=== PATIENT | male | born 1965 | race African-American/Black ===

== ENCOUNTER 2016-10-09 15:34 | Emergency (ER) | payer OTHER ==
[2016-10-09 15:46] VITALS: BP 149/82; PULSE 74; TEMP 98.2; BMI 27.1
[2016-10-09] MEDS ORDERED: IBUPROFEN 600 MG TABLET (FP) PO ONE ×2 (16:19→16:21)
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
== END 2016-10-09 16:55 | disposition home or self-care (01) ==
LOC: JERFT 15:34
DX: S13.4XXA Sprain of ligaments of cervical spine, initial encounter (principal); V43.52XA Car driver injured in collision with other type car in traffic accident, initial encounter; Y92.414 Local residential or business street as the place of occurrence of the external cause; Y99.0 Civilian activity done for income or pay; Y93.89 Activity, other specified
CPT/HCPCS: 99281-25

== ENCOUNTER 2018-03-08 18:37 | Emergency (ER) | payer BC, OTHER ==
[2018-03-08 18:48] VITALS: BMI 27.1
[2018-03-08] MEDS ORDERED: ONDANSETRON 4 MG/2 ML VIAL IVPUSH ONE (18:49)
[2018-03-08] MEDS ORDERED: SODIUM CHLORIDE 1,000 ML IV STA (18:49)
[2018-03-08] MEDS ORDERED: ACETAMINOPHEN 325 MG TABLET (FP) PO ONE (18:49)
--- NOTE | 2018-03-08 18:49 | PDOC ---
Rapid Medical Evaluation Time Seen by Provider: 03/08/18 18:44 Medical Evaluation: Allergies Allergy/AdvReac Type Severity Reaction Status Date / Time Penicillins Allergy Verified 10/09/16 15:44 I have performed a brief in-person evaluation of this patient. The patient presents with a chief complaint of: hx of HTN; c/O fever from today along with cough, rhinorrhea, nasal congestion, body aches, abd pain, NBNB emesis, diarrhea Pertinent physical exam findings: Lungs clear, abdomen soft, ND, NT I have ordered the following: Labs, CXR, flu swab, Tylenol, IVF The patient will proceed to the ED for further evaluation 03/08/18 18:45 Discharge Disposition - Referrals Referrals: Michael Xie [Primary Care Provider] - - Patient Instructions - Post Discharge Activity
[2018-03-08] MEDS ORDERED: ACETAMINOPHEN 325 MG TABLET (FP) ONE (18:59)
[2018-03-08] MEDS ORDERED: ONDANSETRON 4 MG/2 ML VIAL ONE (18:59)
[2018-03-08 19:21] LABS: EOS % 0.4 % (0-4.5); HEMATOCRIT 42.3 % (35.4-49); HEMOGLOBIN 14.5 GM/dL (11.7-16.9); LYMPH % 14.5 % (8-40); MCH 30.4 pg (25.7-33.7); MCHC 34.2 g/dl (32.0-35.9); MEAN PLT VOLUME 7.9 fl (7.5-11.1); MONO % 2.4 % (3.8-10.2); NEUT % 81.7 % (42.8-82.8); PLATELET COUNT 296 K/MM3 (134-434); RBC 4.76 M/mm3 (4.00-5.60); RDW 13.5 % (11.9-15.9); WHITE BLOOD COUNT 9.2 K/mm3 (4.0-10.0)
[2018-03-08] MEDS ORDERED: SODIUM CHLORIDE 2,722 ML IV ONE (19:32)
--- NOTE | 2018-03-08 19:58 | PDOC ---
History of Present Illness - General Chief Complaint: Pain, Acute Stated Complaint: FLU SYMPTOMS Time Seen by Provider: 03/08/18 18:44 - History of Present Illness Initial Comments: 03/08/18 19:50 53 yo M with h/o HTN, who p/w fever, and cough. Patient reports a month of non productive cough, and myalgias. Reports treatment with antitussive, azithromycin , and dayquil medication. Reports subjective fevers today. Endorses acute midabdominal pain, with no triggers or alleviators x 1 day. 2 episodes of non bilious, non bloody emesis today. 1 episode of loose, watery stool today, with absent BPR. Patient denies AG, palpitations, wheezing, vision change, CP, SOB, urinary complaints, hematuria, BPR, diarrhea, constipation, lightheadedness, weakness, sensory changes. PMHx: as noted above Surgical: Appendectomy ROS: as noted SHx: Denies tobacco use. Social Etoh. Denies IVDA. Allergies: NKDA Past History - Past Medical History Allergies/Adverse Reactions: Allergies Allergy/AdvReac Type Severity Reaction Status Date / Time Penicillins Allergy Verified 10/09/16 15:44 Home Medications: Ambulatory Orders Acetaminophen [Tylenol -] 500 mg PO Q8H #100 tablet 03/08/18 Amlodipine Besylate [Norvasc -] 5 mg PO DAILY 03/08/18 Ondansetron [Zofran Odt -] 4 mg SL BID PRN #14 od.tablet MDD 2 tab 03/08/18 COPD: No Dementia: No GI Disorders: No - Surgical History Appendectomy: Yes - Immunization History Immunization Up to Date: No - Suicide/Smoking/Psychosocial Hx Smoking History: Never smoked Have you smoked in the past 12 months: No Information on smoking cessation initiated: No Hx Alcohol Use: No Drug/Substance Use Hx: No Review of Systems - Review of Systems Comments:: 03/08/18 21:01 GENERAL/CONSTITUTIONAL: No fever or chills. No weakness. HEAD, EYES, EARS, NOSE AND THROAT: No change in vision. No ear pain or discharge. No sore throat. CARDIOVASCULAR:+ chest pain and shortness of breath. RESPIRATORY: + cough. No wheezing, or hemoptysis. GASTROINTESTINAL: +nausea, vomiting. No diarrhea or constipation. GENITOURINARY: No dysuria, frequency, or change in urination. MUSCULOSKELETAL: + Myalgias. No joint swelling or pain. No neck or back pain. SKIN: No rash NEUROLOGIC: No headache, vertigo, loss of consciousness, or change in strength/ sensation. ENDOCRINE: No increased thirst. No abnormal weight change HEMATOLOGIC/LYMPHATIC: No anemia, easy bleeding, or history of blood clots. ALLERGIC/IMMUNOLOGIC: No hives or skin allergy. *Physical Exam - Vital Signs Last Vital Signs Temp Pulse Resp BP Pulse Ox 102.5 F H 133 H 16 126/90 98 03/08/18 18:45 03/08/18 18:45 03/08/18 18:45 03/08/18 18:45 03/08/18 18:45 - Physical Exam Comments: 03/08/18 21:02 GENERAL: Awake, alert, and fully oriented, in no acute distress HEAD: No signs of trauma, normocephalic, atraumatic EYES: PERRLA, EOMI, sclera anicteric, conjunctiva clear ENT: Auricles normal inspection, hearing grossly normal, nares patent, oropharynx clear without exudates. Moist mucosa NECK: Normal ROM, supple, no lymphadenopathy, JVD, or masses LUNGS: No distress, speaks full sentences, clear to auscultation bilaterally HEART: Regular rate and rhythm, normal S1 and S2, no murmurs, rubs or gallops, peripheral pulses normal and equal bilaterally. ABDOMEN: Soft, nontender, normoactive bowel sounds. No guarding, no rebound. No masses EXTREMITIES : Normal inspection, Normal range of motion, no edema. No clubbing or cyanosis. NEUROLOGICAL: Cranial nerves II through XII grossly intact. Normal speech, normal gait, no focal sensorimotor deficits SKIN: Warm, Dry, normal turgor, no rashes or lesions noted Moderate Sedation - Procedure Monitoring Vital Signs: Procedure Monitoring Vital Signs Temperature 102.5 F H 03/08/18 18:45 Pulse Rate 133 H 03/08/18 18:45 Respiratory Rate 16 03/08/18 18:45 Blood Pressure 126/90 03/08/18 18:45 O2 Sat by Pulse Oximetry (%) 98 03/08/18 18:45 ED Treatment Course - LABORATORY CBC & Chemistry Diagram: 03/08/18 18:54 03/08/18 18:54 - ADDITIONAL ORDERS Additional order review: 03/08/18 18:54 RBC 4.76 MCV 89.0 MCHC 34.2 RDW 13.5 MPV 7.9 Neutrophils % 81.7 Lymphocytes % 14.5 Monocytes % 2.4 L Eosinophils % 0.4 Basophils % 1.0 - RADIOLOGY Radiology Studies Ordered: Category Date Time Status CHEST X-RAY PORTABLE* [RAD] Stat Radiology 03/08/18 19:33 Ordered - Medications Given in the ED: ED Medications Discontinued Medications Generic Name Dose Route Start Last Admin Trade Name Freaugusto PRN Reason Stop Dose Admin Acetaminophen 650 mg 03/08/18 18:49 03/08/18 19:14 Tylenol - PO 03/08/18 18:50 650 mg ONCE ONE Administration Sodium Chloride 1,000 mls @ 1,000 mls/hr 03/08/18 18:49 03/08/18 19:19 Normal Saline - IV 03/08/18 19:48 1,000 mls/hr ASDIR STA Administration Ondansetron HCl 4 mg 03/08/18 18:49 03/08/18 19:14 Zofran Injection IVPUSH 03/08/18 18:50 4 mg ONCE ONE Administration Medical Decision Making - Medical Decision Making 03/08/18 20:10 53 yo M with h/o HTN, who p/w cough x 1 month, fever and vomiting, 1 day. HR 133, Temp 102.5, vitals otherwise wnl. R/o PNA. will consider PNA, viral URI/ Influenza. Low suspicion pericarditis, pleural effusion. Low risk PE based on Weils criteria. Will assess for electrolyte abnml, metabolic and toxic derangements, and acid base disturbance. Sepsis Protocol initiated. Provide IVF , analgesic, anti-emetic, and reassess. ED Course: 03/08/18 20:57 CBC: Unremarkable BunCr: 12/1.5 03/08/18 23:18 03/08/18 21:02 Positive Influenza A 03/08/18 21:03 VB.62 ph, 61 02 Tylenol, Zofran sent to pharmacy 03/09/18 00:35 Repeat LA: 1.1 Pt. stable, pain, nausea improved. Stable for d/c with return precautions. Advised to f/u with PMD. *DC/Admit/Observation/Transfer Diagnosis at time of Disposition: Cough with fever - Discharge Dispostion Condition at time of disposition: Stable - Prescriptions Prescriptions: Acetaminophen [Tylenol -] 500 mg PO Q8H #100 tablet Ondansetron [Zofran Odt -] 4 mg SL BID PRN #14 od.tablet MDD 2 tab PRN Reason: Nausea - Referrals Referrals: Michael Xie [Primary Care Provider] - - Patient Instructions Printed Discharge Instructions: DI for Influenza -- Adult Additional Instructions: Please return to the emergency department with any new or worsening symptoms or concerns. Please follow up with your primary care physician within 72 hours. Please take Tylenol every 8 hours as needed and Zofran every 4 hours as needed. - Post Discharge Activity - Attestations Physician Attestion: 03/08/18 21:07 I attest to the information provided in this note.
--- NOTE | 2018-03-08 19:59 | PDOC ---
Attending Attestation - HPI HPI: 03/08/18 20:26 The patient is a 53 year old male, with a significant past medical history of HTN, who presents to the emergency department with, cough and shortness of breath. As per patient, his symptoms onset 1 month ago with associated myalgias. Patient notes today he began to have subjective fevers and 2 episodes on NBNB emesis. Patient was recently treated with a Z-pack for his symptoms, without relief. He denies any recent chest pain or shortness of breath. He denies any recent dysuria, frequency, urgency or hematuria. Allergies: Penicillins. <Bob Farias - Last Filed: 03/08/18 20:26> - Resident Resident Name: Mu Whyte - ED Attending Attestation I have performed the following: I have examined & evaluated the patient, The case was reviewed & discussed with the resident, I agree w/resident's findings & plan - Physicial Exam PE: 03/08/18 23:22 GENERAL: Awake, in no acute distress HEAD: No signs of trauma EYES: PERRLA, EOMI, sclera anicteric, conjunctiva clear, visual acuity grossly intact ENT:mucous membranes moist NECK: Normal ROM, supple, no lymphadenopathy, JVD LUNGS: Breath sounds equal, clear to auscultation bilaterally. No wheezes, and no crackles. Normal work of breathing. HEART: Regular rate and rhythm, normal S1 and S2, no murmurs, rubs or gallops ABDOMEN: Soft, nontender, normoactive bowel sounds. No guarding, Non- distended. : CHEST WALL: BACK: No midline tenderness. EXTREMITIES: Normal range of motion, no edema. No clubbing or cyanosis. No erythema, or tenderness NEUROLOGICAL: Alert, and fully oriented x4, Cranial nerves II through XII grossly intact. Normal speech, SKIN: Warm, Dry, normal turgor, no rashes or lesions noted. 03/08/18 23:30 - Medical Decision Making 03/08/18 23:23 53-year-old male with fever and bodyaches Influenza swab is positive Chest x-ray shows no acute consolidation IV fluid normal saline 30 mL/kg weight-based less given in the emergency department Initial lactic acid was elevated, plan for discharge pending repeat On reevaluation patient is feeling better Impression influenza Dehydration Plan for discharge home with supportive care 03/08/18 23:26 <Nesha Thakur - Last Filed: 03/08/18 23:30> Attestations - Attestations 03/08/18 20:26 Documentation prepared by Bob Farias, acting as chief medical officer for Nesha Thakur DO. <Bob Farias - Last Filed: 03/08/18 20:26>
[2018-03-08 20:17] LABS: VENOUS PC02 21.6 mmHg (38-52)
[2018-03-08 20:27] VITALS: BP 110/70; PULSE 106; TEMP 100.5
[2018-03-08] MEDS ORDERED: ALBUTEROL SO4 0.5 % INH SOLN 2.5 MG/0.5 ML VIAL.NEB. NEB ONE (20:30)
[2018-03-08 20:48] LABS: INR 1.1 (0.83-1.09)
[2018-03-08 20:51] LABS: ACTIVATED PTT 25.7 SECONDS (25.2-36.5)
[2018-03-08 21:01] LABS: ANION GAP 8 MMOL/L (8-16); BLOOD UREA NITROGEN 12 mg/dL (7-18); CALCIUM 8.5 mg/dL (8.5-10.1); CHLORIDE 105 mmol/L (98-107); CO2 25 mmol/L (21-32); CREATININE 1.5 mg/dL (0.55-1.3); GLUCOSE,RANDOM 108 mg/dL (74-106); POTASSIUM 4.4 mmol/L (3.5-5.1); SODIUM 138 mmol/L (136-145)
[2018-03-08 21:02] LABS: VENOUS PH 7.62 (7.32-7.42)
[2018-03-08] MEDS ORDERED: ALBUTEROL SO4 0.083% IH SOL 2.5 MG/3 ML VIAL.NEB. NEB ONE (21:32)
--- NOTE | 2018-03-09 11:57 | EKG ---
Test Reason : Blood Pressure : / mmHG Vent. Rate : 106 BPM Atrial Rate : 106 BPM P-R Int : 146 ms QRS Dur : 082 ms QT Int : 356 ms P-R-T Axes : 062 055 045 degrees QTc Int : 472 ms SINUS TACHYCARDIA OTHERWISE NORMAL ECG WHEN COMPARED WITH ECG OF 17-SEP-2004 23:24, NO SIGNIFICANT CHANGE WAS FOUND Confirmed by ASHLEY PIÑA MD ([id number]) on 03/09/2018 11:57:07 AM Referred By: Confirmed By:ASHLEY PIÑA MD
== END 2018-03-09 01:52 | disposition home or self-care (01) ==
LOC: JER 18:37
PROC: 3E033GC Introduction of Other Therapeutic Substance into Peripheral Vein, Percutaneous Approach (ICD-10-PCS; principal; 2018-03-08)
PROC: 3E0F7GC Introduction of Other Therapeutic Substance into Respiratory Tract, Via Natural or Artificial Opening (ICD-10-PCS; 2018-03-08)
PROC: 3E0337Z Introduction of Electrolytic and Water Balance Substance into Peripheral Vein, Percutaneous Approach (ICD-10-PCS; 2018-03-08)
DX: R50.9 Fever, unspecified (principal); R05 Cough; I10 Essential (primary) hypertension
CPT/HCPCS: 36415; 71045-TC-FY; 80048; 82803; 83605; 84484; 85025; 85610; 85730; 87040; 87804; 93005; 93010; 99283-25; J7030